=== PATIENT | female | born 1965 | race Caucasian/White ===

== ENCOUNTER → 2018-03-31 | Outpatient (CLI) | payer BC ==
--- NOTE | 2018-03-31 12:49 | P.STRESS ---
- Stress Test Note Stress Test Results/Findings: Exam Performed: stress echo exercise with con Exam Date: 03/31/18 Reason for Exam: cp Height: 5 ft 2 in Weight: 104.326 kg Protocol: stress echo Stage: 3 Duration of Exercise: 5min 30 sec Resting Heart Rate: 95 Resting Blood Pressure: 104/50 Maximum Achieved Heart Rate: 142 Maximum Achieved Blood Pressure: 191/51 85% PMHR: 141 100% PMHR: 166 METS: 7.5 Technologist Comment: Stress Test Results/Findings: This is a 52-year-old gentleman with history of asthma being evaluated for symptoms of chest pain. Stress data: Baseline EKG showed a sinus rhythm with normal MT interval and QRS duration with mild nonspecific ST-T sheldon. Her pressure at rest is 104/50 with pulse rate of 95. Patient walked on the Jose protocol for 6 minutes and 30 seconds achieving a maximal heart rate of 142 with a blood pressure 191/51. EKGs taken during exercise showed about half a millimeter horizontal ST depression in inferolateral leads. These changes persisted for about 6 minutes in the post exercise period. Patient did not experience any chest pain. Echo data: This stress echo is done with contrast. Baseline echo images showed normal wall motion and thickening. Exercise echo images showed augmentation of wall motion and thickening in all segments. Final impression: #1. Borderline EKG changes which are nondiagnostic for ischemia because of baseline changes. #2. Negative stress echo. #3. Patient did not experience any chest pain.
--- NOTE | 2018-04-03 15:50 | ECHOS ---
Stress Test Results/Findings: Exam Performed: stress echo exercise with con Exam Date: 03/31/18 Reason for Exam: cp Height: 5 ft 2 in Weight: 104.326 kg Protocol: stress echo Stage: 3 Duration of Exercise: 5min 30 sec Resting Heart Rate: 95 Resting Blood Pressure: 104/50 Maximum Achieved Heart Rate: 142 Maximum Achieved Blood Pressure: 191/51 85% PMHR: 141 100% PMHR: 166 METS: 7.5 Technologist Comment: Stress Test Results/Findings: This is a 52-year-old gentleman with history of asthma being evaluated for symptoms of chest pain. Stress data: Baseline EKG showed a sinus rhythm with normal IL interval and QRS duration with mild nonspecific ST-T sheldon. Her pressure at rest is 104/50 with pulse rate of 95. Patient walked on the Jose protocol for 6 minutes and 30 seconds achieving a maximal heart rate of 142 with a blood pressure 191/51. EKGs taken during exercise showed about half a millimeter horizontal ST depression in inferolateral leads. These changes persisted for about 6 minutes in the post exercise period. Patient did not experience any chest pain. Echo data: This stress echo is done with contrast. Baseline echo images showed normal wall motion and thickening. Exercise echo images showed augmentation of wall motion and thickening in all segments. Final impression: #1. Borderline EKG changes which are nondiagnostic for ischemia because of baseline changes. #2. Negative stress echo. #3. Patient did not experience any chest pain. LISETH
== END ==
LOC: RADNMMAIN 10:10
PROVIDERS: ATTEND Family Medicine
DX: R07.89 Other chest pain (principal)
CPT/HCPCS: 93351; Q9950

== ENCOUNTER → 2018-10-18 | Outpatient (CLI) | payer BC ==
--- NOTE | 2018-10-18 17:50 | CT ---
EXAMINATION TYPE: CT abdomen w con DATE OF EXAM: 10/18/2018 COMPARISON: None HISTORY: Jaundice. CT DLP: 1231.3 mGycm Automated exposure control for dose reduction was used. TECHNIQUE: Helical acquisition of images was performed from the lung bases through the top of iliac crest to include entire abdomen. CONTRAST: Performed with Oral Contrast and with IV Contrast, patient injected with 100ml mL of Isovue 300. FINDINGS: Lung bases are clear. There is no pleural effusion. Heart size is normal. Liver spleen pancreas appear normal. Bile ducts are not dilated. There are small calcified gallstone. Gallbladder is contracted.There is 5 mm calcified granuloma in the anterior spleen. There is no adre nal mass. The kidneys show satisfactory contrast opacification. There is no hydronephrosis. Ureters a re not dilated. I see no intestinal wall thickening. There are no dilated loops. There is no evidence of mesenteric edema or adenopathy. There is no retroperitoneal adenopathy. There is no lumbar compr ession fracture. There is left-sided L5 spondylolysis without spondylolisthesis. IMPRESSION: UNILATERAL L5 SPONDYLOLYSIS. NEGATIVE CT SCAN OF THE ABDOMEN. SMALL CALCIFIED GALLSTONE.
== END ==
LOC: RADCTMAIN 16:16
PROVIDERS: ATTEND Midwife
DX: R17 Unspecified jaundice (principal)
CPT/HCPCS: 74160; Q9967

== ENCOUNTER → 2018-11-01 | Outpatient (CLI) | payer BC ==
[2018-11-01 09:52] LABS: HCT 38.2 % (34.0-46.0); MCH 32.6 pg (25.0-35.0); MCHC 31.2 g/dL (31.0-37.0); MCV 104.2 fL (80.0-100.0); Macrocytosis Moderate; Mean Platelet Volume 6.5; Platelet Count 301 k/uL (150-450); RBC 3.67 m/uL (3.80-5.40); RDW 15.3 % (11.5-15.5); WBC 7.3 k/uL (3.8-10.6)
[2018-11-01 10:17] LABS: Prothrombin Time 10.4 sec (9.0-12.0)
[2018-11-01 17:15] LABS: Iron Saturation 37.43 (12.00-45.00)
[2018-11-01 17:18] LABS: Albumin 3.8 g/dL (3.80-4.90); Albumin/Globulin Ratio 1.81 (1.20-2.10); Bilirubin, Conjugated 15.3 mg/dL (0.20-0.40); Bilirubin,Unconjugated 5.5 mg/dL; Globulin 2.1 g/dL (1.6-3.3); Total Protein 5.9 g/dL (6.2-8.2)
[2018-11-02 12:35] LABS: Ceruloplasmin 47.7 mg/dL (20.0-60.0)
[2018-11-02 14:03] LABS: Albumin 3.85 g/dL (3.80-4.90); Gamma Globulin 0.58 g/dL (0.70-1.50)
[2018-11-03 08:29] LABS: Total Bilirubin 20.8 mg/dL (0.2-1.2)
== END | disposition home or self-care (01) ==
LOC: LABWHC1 09:12
PROVIDERS: ATTEND Physician Assistant
DX: R74.8 Abnormal levels of other serum enzymes (principal)
CPT/HCPCS: 36415; 80076; 82390; 82728; 83516; 83540; 83550; 84165; 85027; 85610; 86038

== ENCOUNTER → 2018-11-01 | Outpatient (CLI) | payer BC ==
--- NOTE | 2018-11-01 13:27 | MR ---
EXAMINATION TYPE: MR liver wo/w con and mrcp DATE OF EXAM: 11/01/2018 COMPARISON: CT abdomen dated 10/18/2018 HISTORY: Jaundice, Abn levels of other serum enzymes CONTRAST: Standard multiplanar, multisequence MRI departmental protocol utilizing 10 mL intravenous Gadavist ga dolinium contrast. MRCP protocol was utilized to evaluate the biliary tree with 3-D images of the bi liary system obtained. FINDINGS: The common bile duct is nondilated measuring 4 mm distally. There is a low insertion of the cystic duct although no evidence of Mirizzi syndrome is seen at this time. The common hepatic duct i s also within normal limits measuring 5 mm. Very mild intrahepatic biliary ductal dilatation is seen with bridging and alternating areas of stenosis and dilatation in the left hepatic lobe on MRCP thick slab series 701 images 19 through 35. This has a beaded appearance. There is no evidence of signal d ropout on out of phase imaging within the hepatic parenchyma globally, however there are geographic r egions within the right hepatic lobe that do demonstrate signal dropout suggesting few areas of focal fatty infiltration. There is no associated suspicious T2 signal. There are few scattered T2 hyperint ense nonenhancing 1 to 2 mm hepatic cysts. No suspicious enhancement is seen within the liver. Liver contour is smooth. There is some motion artifact present, slightly limiting examination. The spleen, adrenal glands, pancreas, and kidneys are of unremarkable enhancement and morphology. No pancreatic ductal dilatation. Gallbladder is unremarkable. No evidence of choledocholithiasis. Bowel is nondilated. Abdominal aorta is of normal course and caliber. No greater than 1 cm short axis lymph node in the abdomen. There is a solitary nonenlarged 6 mm daily hepatis lymph node Subcutaneous tiss ues are unremarkable. Bone marrow signal is also within normal limits. IMPRESSION: No suspicious enhancing focal liver lesion. There are few scattered 1 to 2 mm hepatic cysts that do n ot demonstrate suspicious enhancement. No evidence of choledocholithiasis or cholelithiasis. Few area s of focal fatty infiltration are seen within the liver. Additionally few minimally prominent left he patic biliary radicles demonstrate somewhat of a beaded appearance not readily reproducible on axial images but seen on the thick slab 3-D images. Therefore the possibility of primary sclerosing cholang itis could be considered, although mild.
== END | disposition home or self-care (01) ==
LOC: RADMRIMAIN 10-30 08:39
PROVIDERS: ATTEND Internal Medicine Gastroenterology
DX: K76.0 Fatty (change of) liver, not elsewhere classified (principal); K76.89 Other specified diseases of liver
CPT/HCPCS: 74183; A9585

== ENCOUNTER 2019-01-05 20:23 | Emergency (ER) | payer BC, OTHER ==
[2019-01-05 20:30] VITALS: BP 142/61; PULSE 100; RESP 16; TEMP 98.4
[2019-01-05] MEDS ORDERED: DIPH,PERTUS(ACELL)TETVAC-LF 0.5 ML VIAL IM ONE (20:40)
[2019-01-05] MEDS ORDERED: LIDOCAINE 1% INJ 10MG/ML (20 ML MDV) SQ ONE (20:40)
--- NOTE | 2019-01-05 21:03 | XR ---
EXAMINATION TYPE: XR hand complete RT DATE OF EXAM: 01/05/2019 COMPARISON: NONE HISTORY: Laceration TECHNIQUE: 3 views FINDINGS: Metacarpals are intact. I see no fracture nor dislocation. There is no sign of radiopaque f oreign body. Joint spaces are fairly normal. There are some cystic change at the base of the second p roximal phalanx consistent with old injury and degenerative phenomenon. IMPRESSION: No acute abnormality of the right hand. No fracture.
--- NOTE | 2019-01-05 22:07 | ED ---
General Adult HPI - General Chief complaint: Wound/Laceration Stated complaint: [facility]-Hand lac Time Seen by Provider: 01/05/19 20:39 Source: patient, RN notes reviewed Mode of arrival: ambulatory Limitations: no limitations - History of Present Illness Initial comments: 53-year-old female presents to the emergency department for a chief complaint of laceration to the right hand. Patient states she was at work about an hour prior to arrival when a metal sheet fell on the side of her hand. She states this caused a laceration. Patient denies pain with movement of the hand. Denies any difficulty moving the pinky finger. Tetanus is not up-to-date. Denies any other injuries. Patient has no other complaints at this time including shortness of breath, chest pain, abdominal pain, nausea or vomiting, headache, or visual changes. - Related Data Home Medications Medication Instructions Recorded Confirmed Esomeprazole Magnesium [NexIUM] 20 mg PO DAILY 01/22/15 01/22/15 Levothyroxine Sodium [Synthroid] 50 mcg PO DAILY 01/22/15 01/22/15 Previous Rx's Medication Instructions Recorded predniSONE 40 mg PO DAILY #4 tab 01/22/15 Allergies Allergy/AdvReac Type Severity Reaction Status Date / Time sulfamethoxazole Allergy Rash/Hives Verified 01/05/19 20:31 [From Bactrim] trimethoprim [From Bactrim] Allergy Rash/Hives Verified 01/05/19 20:31 Review of Systems ROS Statement: Those systems with pertinent positive or pertinent negative responses have been documented in the HPI. ROS Other: All systems not noted in ROS Statement are negative. Past Medical History Past Medical History: GERD/Reflux, Thyroid Disorder History of Any Multi-Drug Resistant Organisms: None Reported Past Surgical History: Hysterectomy Additional Past Surgical History / Comment(s): seasonal allergies Past Psychological History: Depression Smoking Status: Never smoker Past Alcohol Use History: Rare Past Drug Use History: None Reported General Exam Limitations: no limitations General appearance: alert, in no apparent distress Head exam: Present: atraumatic, normocephalic, normal inspection Eye exam: Present: normal appearance. Absent: PERRL, EOMI, scleral icterus, conjunctival injection ENT exam: Present: normal exam, mucous membranes moist Neck exam: Present: normal inspection, full ROM. Absent: tenderness, meningismus, lymphadenopathy Respiratory exam: Present: normal lung sounds bilaterally. Absent: respiratory distress, wheezes, rales, rhonchi, stridor Cardiovascular Exam: Present: regular rate, normal rhythm, normal heart sounds. Absent: systolic murmur, diastolic murmur, rubs, gallop, clicks Extremities exam: Present: full ROM (Full range motion of all digits of the right hand including the right fifth digit), normal capillary refill (cap refill < 2 seconds, radial pulse 2+ in rue), other (3 cm lac on the ulnar aspect of the palmar right hand. There is also a small 0.5 cm laceration above this. No f oreign bodies noted. Deep structures intact.) Neurological exam: Present: alert, oriented X3, CN II-XII intact Psychiatric exam: Present: normal affect, normal mood Course Vital Signs 01/05/19 20:25 Temperature 98.4 F Pulse Rate 100 Respiratory 16 Rate Blood Pressure 142/61 O2 Sat by Pulse 100 Oximetry Procedures - Laceration Laceration #1 Consent Obtained: verbal consent Indication: laceration Site: hand Size (cm): 3 Description: irregular Depth: simple, single layer Anesthetic Used: lidocaine 1% Anesthesia Technique: local infiltration Amount (mls): 4 Pre-repair: wound explored, irrigated extensively (With pressure saline irrigation and cleaned with iodine), deep structures intact Size of Sutures: 5-0 Number of Sutures: 6 Technique: simple, interrupted Patient Tolerated Procedure: well, no complications Medical Decision Making - Medical Decision Making 53 rolled female percent for laceration after a metal sheet fell on her hand. Full range motion in the right hand. X-ray negative for fractures. Laceration cleaned thoroughly with pressure saline irrigation and iodine. Repaired without complications. Educated on signs of infection for which patient will return for. Tetanus updated. She will return if she has any other worsening symptoms. Educated to have sutures removed in 7-10 days, educated that we will do this through the emergency department. Disposition Clinical Impression: Laceration Disposition: HOME SELF-CARE Condition: Good Instructions (If sedation given, give patient instructions): Care For Your Stitches (ED), Laceration (ED) Additional Instructions: Please keep the area clean. Monitor for signs of infection such as spreading or streaking redness, drainage, or fever and return if these occur. Follow-up with primary care in 1-2 days. Return to the emergency department if you have any worsening symptoms. Return in 7-10 days to have sutures removed. Is patient prescribed a controlled substance at d/c from ED?: No Referrals: Alexye Brown MD [Primary Care Provider] - 1-2 days Time of Disposition: 22:06
== END 2019-01-05 22:29 | disposition home or self-care (01) ==
LOC: EC 20:23
DX: S61.411A Laceration without foreign body of right hand, initial encounter (principal); K21.9 Gastro-esophageal reflux disease without esophagitis; E07.9 Disorder of thyroid, unspecified; Z79.890 Hormone replacement therapy; Z79.899 Other long term (current) drug therapy; Z88.2 Allergy status to sulfonamides; Z23 Encounter for immunization; W20.8XXA Other cause of strike by thrown, projected or falling object, initial encounter; Y92.69 Other specified industrial and construction area as the place of occurrence of the external cause; Y99.0 Civilian activity done for income or pay
CPT/HCPCS: 12002; 90471; 90715; 99283

== ENCOUNTER 2019-05-10 05:52 | Emergency (ER) | payer BC ==
[2019-05-10] MEDS ORDERED: IPRATROPIUM-ALBUTEROL 3 ML NEB INHALATION STA ×2 (06:17→07:01)
[2019-05-10] MEDS ORDERED: SODIUM CHLORIDE 0.9% 500 ML 500 ML IV STA (06:18)
[2019-05-10] MEDS ORDERED: methylPREDNISolone SOD SUCCI 125 MG/2 ML VIAL IV STA (06:18)
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
[2019-05-10 06:30] LABS: Basophils # (A) 0.1 k/uL (0-0.2); Basophils % (A) 1 %; Eosinophils # (A) 1.5 k/uL (0-0.7); Eosinophils % (A) 15 %; HCT 42.6 % (34.0-46.0); HGB 14.3 gm/dL (11.4-16.0); Lymphocytes % (A) 31 %; MCH 31.5 pg (25.0-35.0); MCHC 33.6 g/dL (31.0-37.0); MCV 93.7 fL (80.0-100.0); Mean Platelet Volume 6.4; Monocytes # (A) 0.4 k/uL (0-1.0); Monocytes % (A) 4 %; Neutrophils # (A) 4.7 k/uL (1.3-7.7); Neutrophils % (A) 48 %; Platelet Count 278 k/uL (150-450); RBC 4.55 m/uL (3.80-5.40); RDW 12.8 % (11.5-15.5); WBC 9.8 k/uL (3.8-10.6)
[2019-05-10 06:39] LABS: ALT 29 U/L (9-52); AST 29 U/L (14-36); African American GFR (CKD) >90 (>60 ml/min/1.73 sqM); Albumin 4.6 g/dL (3.5-5.0); Alkaline Phosphatase 129 U/L (38-126); Anion Gap 10 mmol/L; Blood Urea Nitrogen 22 mg/dL (7-17); Calcium 9.9 mg/dL (8.4-10.2); Carbon Dioxide 27 mmol/L (22-30); Chloride 104 mmol/L (98-107); Glucose 110 mg/dL (74-99); Magnesium 2.1 mg/dL (1.6-2.3); Non-African American GFR(CKD) >90 (>60 ml/min/1.73 sqM); Potassium 3.8 mmol/L (3.5-5.1); Sodium 141 mmol/L (137-145); Total Protein 7.4 g/dL (6.3-8.2)
[2019-05-10 06:48] LABS: Partial Thromboplastin Time 24.1 sec (22.0-30.0); Prothrombin Time 10.6 sec (9.0-12.0)
--- NOTE | 2019-05-10 07:09 | XR ---
EXAMINATION TYPE: XR chest 2V DATE OF EXAM: 05/10/2019 COMPARISON: 05/10/2019 HISTORY: Difficulty breathing TECHNIQUE: Frontal and lateral views of the chest are obtained. FINDINGS: There is no focal air space opacity, pleural effusion, or pneumothorax seen. The cardiac silhouette size is within normal limits. The osseous structures are intact. Mild multilevel degener ative changes of the spine. IMPRESSION: No acute cardiopulmonary process.
[2019-05-10 08:06] VITALS: BP 152/80; PULSE 92; RESP 18; TEMP 97.9
== END 2019-05-10 08:06 | disposition home or self-care (01) ==
LOC: EC 05:52
DX: J45.901 Unspecified asthma with (acute) exacerbation (principal); K21.9 Gastro-esophageal reflux disease without esophagitis; E07.9 Disorder of thyroid, unspecified; Z88.2 Allergy status to sulfonamides; Z79.890 Hormone replacement therapy; Z79.899 Other long term (current) drug therapy
CPT/HCPCS: 36415; 94640 ×2; 80053; 83735; 84484; 85025; 85610; 85730; 71046; 99285; 96374; J2930; 93005

== ENCOUNTER 2019-05-24 15:05 | Emergency (ER) | payer BC ==
[2019-05-24 15:10] VITALS: RESP 14
[2019-05-24] MEDS ORDERED: IPRATROPIUM-ALBUTEROL 3 ML NEB INHALATION STA (15:14)
[2019-05-24] MEDS ORDERED: SODIUM CHLORIDE 0.9% 1,000 ML IV STA (15:14)
--- NOTE | 2019-05-24 15:15 | ED ---
SOB HPI - General Chief Complaint: Shortness of Breath Stated Complaint: TIERRA Time Seen by Provider: 05/24/19 15:09 Source: patient, RN notes reviewed, old records reviewed Mode of arrival: EMS Limitations: no limitations - History of Present Illness Initial Comments: This is a 53-year-old female the ER for evaluation. Presents today for evaluation regarding shortness of breath with history of asthma. Patient states eating. Worse damage prior to arrival, she's had a few episodes of asthma exacerbation recently. No pain increased cough and increased congestion no fever. No recent travel history or sick contacts. No current chest pain patient feeling much better with breathing treatment MD Complaint: shortness of breath, cough -: hour(s) Radiation: neck, other Severity: mild Severity scale (1-10): 5 (Improving) Consistency: constant, now resolved (Improving) Improves With: oxygen, bronchodilators, medication Worsens With: exertion Known History Of: COPD, asthma Context: recent URI Associated Symptoms: cough, sputum production - Related Data Home Medications Medication Instructions Recorded Confirmed Levothyroxine Sodium [Synthroid] 50 mcg PO HS 01/22/15 05/24/19 Albuterol Inhaler [Ventolin Hfa 1 - 2 puff INHALATION RT-Q6H PRN 05/10/19 05/24/19 Inhaler] Fluticasone/Salmeterol [Advair 1 puff INHALATION RT-BID PRN 05/10/19 05/24/19 250-50 Diskus] Loratadine [Claritin] 10 mg PO DAILY 05/10/19 05/24/19 Omeprazole 20 mg PO HS 05/10/19 05/24/19 Levofloxacin [Levaquin] 500 mg PO DAILY 05/24/19 05/24/19 Previous Rx's Medication Instructions Recorded Albuterol Inhaler [Ventolin Hfa 1 - 2 puff INHALATION RT-Q6H #1 05/24/19 Inhaler] inhaler Azithromycin [Zithromax Z-pack] 0 mg PO DIRECTED #1 pack 05/24/19 predniSONE 50 mg PO DAILY #5 tab 05/24/19 Allergies Allergy/AdvReac Type Severity Reaction Status Date / Time amoxicillin [From Augmentin] AdvReac JAUNDICE Verified 05/24/19 15:59 clavulanic acid AdvReac JAUNDICE Verified 05/24/19 15:59 [From Augmentin] sulfamethoxazole AdvReac Rash/Hives Verified 05/24/19 15:59 [From Bactrim] trimethoprim [From Bactrim] AdvReac Rash/Hives Verified 05/24/19 15:59 Review of Systems ROS Statement: Those systems with pertinent positive or pertinent negative responses have been documented in the HPI. ROS Other: All systems not noted in ROS Statement are negative. Past Medical History Past Medical History: Asthma, GERD/Reflux, Thyroid Disorder History of Any Multi-Drug Resistant Organisms: None Reported Past Surgical History: Hysterectomy Additional Past Surgical History / Comment(s): seasonal allergies Past Psychological History: Depression Smoking Status: Never smoker Past Alcohol Use History: Rare Past Drug Use History: None Reported General Exam Limitations: no limitations General appearance: alert, in no apparent distress Head exam: Present: atraumatic, normocephalic, normal inspection Eye exam: Present: normal appearance, PERRL, EOMI. Absent: scleral icterus, conjunctival injection, periorbital swelling ENT exam: Present: normal exam, mucous membranes moist Neck exam: Present: normal inspection. Absent: tenderness, meningismus, lymphadenopathy Respiratory exam: Present: respiratory distress, wheezes, accessory muscle use, decreased breath sounds, prolonged expiratory. Absent: rales, rhonchi, stridor Cardiovascular Exam: Present: regular rate, normal rhythm, normal heart sounds. Absent: systolic murmur, diastolic murmur, rubs, gallop, clicks GI/Abdominal exam: Present: soft, normal bowel sounds. Absent: distended, tenderness, guarding, rebound, rigid Extremities exam: Present: normal inspection, full ROM, normal capillary refill. Absent: tenderness, pedal edema, joint swelling, calf tenderness Back exam: Present: normal inspection Neurological exam: Present: alert, oriented X3, CN II-XII intact Psychiatric exam: Present: normal affect, normal mood Skin exam: Present: warm, dry, intact, normal color. Absent: rash Course Vital Signs 05/24/19 05/24/19 05/24/19 15:06 15:51 15:59 Temperature 97.5 F L Pulse Rate 92 87 Respiratory 14 Rate Blood Pressure 136/77 O2 Sat by Pulse 100 98 Oximetry 05/24/19 05/24/19 16:13 16:50 Temperature Pulse Rate 88 88 Respiratory 14 Rate Blood Pressure 126/58 O2 Sat by Pulse 98 Oximetry - Reevaluation(s) Reevaluation #1: 05/24/19 16:42 Medical record is reviewed Reevaluation #2: 05/24/19 16:42 Symptoms are improved Reevaluation #3: 05/24/19 17:32 Patient feels significant improvement after second breathing treatment, feels fine for discharge Medical Decision Making - Medical Decision Making 53 female the ER for evaluation patient presents today for shortness of breath with cough. Patient given breathing treatment with significant improvement, will be discharged home on breathing treatments and is without significant complaint - Lab Data Result diagrams: 05/24/19 15:33 05/24/19 15:33 Lab Results 05/24/19 05/24/19 05/24/19 Range/Units 15:33 15:33 15:33 WBC 8.4 (3.8-10.6) k/uL RBC 4.27 (3.80-5.40) m/uL Hgb 13.9 (11.4-16.0) gm/dL Hct 41.2 (34.0-46.0) % MCV 96.5 (80.0-100.0) fL MCH 32.5 (25.0-35.0) pg MCHC 33.7 (31.0-37.0) g/dL RDW 13.9 (11.5-15.5) % Plt Count 235 (150-450) k/uL Neutrophils % 64 % Lymphocytes % 23 % Monocytes % 3 % Eosinophils % 8 % Basophils % 1 % Neutrophils # 5.3 (1.3-7.7) k/uL Lymphocytes # 2.0 (1.0-4.8) k/uL Monocytes # 0.3 (0-1.0) k/uL Eosinophils # 0.7 (0-0.7) k/uL Basophils # 0.1 (0-0.2) k/uL PT (9.0-12.0) sec INR (<1.2) APTT (22.0-30.0) sec Sodium 139 (137-145) mmol/L Potassium 3.7 (3.5-5.1) mmol/L Chloride 107 (98-107) mmol/L Carbon Dioxide 26 (22-30) mmol/L Anion Gap 6 mmol/L BUN 17 (7-17) mg/dL Creatinine 0.60 (0.52-1.04) mg/dL Est GFR (CKD-EPI)AfAm >90 (>60 ml/min/1.73 sqM) Est GFR (CKD-EPI)NonAf >90 (>60 ml/min/1.73 sqM) Glucose 114 H (74-99) mg/dL Calcium 9.3 (8.4-10.2) mg/dL Magnesium 1.9 (1.6-2.3) mg/dL Total Bilirubin 1.0 (0.2-1.3) mg/dL AST 29 (14-36) U/L ALT 33 (9-52) U/L Alkaline Phosphatase 122 (38-126) U/L Troponin I (0.000-0.034) ng/mL NT-Pro-B Natriuret Pep 129 pg/mL Total Protein 6.6 (6.3-8.2) g/dL Albumin 4.0 (3.5-5.0) g/dL 05/24/19 05/24/19 Range/Units 15:33 15:33 WBC (3.8-10.6) k/uL RBC (3.80-5.40) m/uL Hgb (11.4-16.0) gm/dL Hct (34.0-46.0) % MCV (80.0-100.0) fL MCH (25.0-35.0) pg MCHC (31.0-37.0) g/dL RDW (11.5-15.5) % Plt Count (150-450) k/uL Neutrophils % % Lymphocytes % % Monocytes % % Eosinophils % % Basophils % % Neutrophils # (1.3-7.7) k/uL Lymphocytes # (1.0-4.8) k/uL Monocytes # (0-1.0) k/uL Eosinophils # (0-0.7) k/uL Basophils # (0-0.2) k/uL PT 9.9 (9.0-12.0) sec INR 0.9 (<1.2) APTT 22.1 (22.0-30.0) sec Sodium (137-145) mmol/L Potassium (3.5-5.1) mmol/L Chloride (98-107) mmol/L Carbon Dioxide (22-30) mmol/L Anion Gap mmol/L BUN (7-17) mg/dL Creatinine (0.52-1.04) mg/dL Est GFR (CKD-EPI)AfAm (>60 ml/min/1.73 sqM) Est GFR (CKD-EPI)NonAf (>60 ml/min/1.73 sqM) Glucose (74-99) mg/dL Calcium (8.4-10.2) mg/dL Magnesium (1.6-2.3) mg/dL Total Bilirubin (0.2-1.3) mg/dL AST (14-36) U/L ALT (9-52) U/L Alkaline Phosphatase (38-126) U/L Troponin I <0.012 (0.000-0.034) ng/mL NT-Pro-B Natriuret Pep pg/mL Total Protein (6.3-8.2) g/dL Albumin (3.5-5.0) g/dL - EKG Data -: EKG Interpreted by Me (EKG shows sinus rhythm rate of 87, AK 140, QRS 70, QTc 464) - Radiology Data Radiology results: report reviewed (Chest x-rays negative for acute disease), image reviewed Disposition Clinical Impression: Acute exacerbation of chronic obstructive airways disease, Asthma with exacerbation, Asthma exacerbation Disposition: HOME SELF-CARE Condition: Good Instructions (If sedation given, give patient instructions): Asthma (ED), Acute Bronchitis (ED) Prescriptions: predniSONE 50 mg PO DAILY #5 tab Albuterol Inhaler [Ventolin Hfa Inhaler] 1 - 2 puff INHALATION RT-Q6H #1 inhaler Azithromycin [Zithromax Z-pack] 0 mg PO DIRECTED #1 pack Is patient prescribed a controlled substance at d/c from ED?: No Referrals: Alexey Brown MD [Primary Care Provider] - 1-2 days
[2019-05-24 15:45] LABS: Basophils # (A) 0.1 k/uL (0-0.2); Basophils % (A) 1 %; Eosinophils # (A) 0.7 k/uL (0-0.7); Eosinophils % (A) 8 %; HCT 41.2 % (34.0-46.0); HGB 13.9 gm/dL (11.4-16.0); Lymphocytes % (A) 23 %; MCH 32.5 pg (25.0-35.0); MCHC 33.7 g/dL (31.0-37.0); MCV 96.5 fL (80.0-100.0); Monocytes # (A) 0.3 k/uL (0-1.0); Monocytes % (A) 3 %; Neutrophils # (A) 5.3 k/uL (1.3-7.7); Neutrophils % (A) 64 %; Platelet Count 235 k/uL (150-450); RBC 4.27 m/uL (3.80-5.40); RDW 13.9 % (11.5-15.5); WBC 8.4 k/uL (3.8-10.6)
[2019-05-24 15:51] LABS: ALT 33 U/L (9-52); AST 29 U/L (14-36); African American GFR (CKD) >90 (>60 ml/min/1.73 sqM); Alkaline Phosphatase 122 U/L (38-126); Anion Gap 6 mmol/L; Blood Urea Nitrogen 17 mg/dL (7-17); Calcium 9.3 mg/dL (8.4-10.2); Carbon Dioxide 26 mmol/L (22-30); Chloride 107 mmol/L (98-107); Glucose 114 mg/dL (74-99); Magnesium 1.9 mg/dL (1.6-2.3); Potassium 3.7 mmol/L (3.5-5.1); Sodium 139 mmol/L (137-145); Total Protein 6.6 g/dL (6.3-8.2)
[2019-05-24 15:54] LABS: INR 0.9 (<1.2); Partial Thromboplastin Time 22.1 sec (22.0-30.0); Prothrombin Time 9.9 sec (9.0-12.0)
--- NOTE | 2019-05-24 15:54 | XR ---
EXAMINATION TYPE: XR chest 2V DATE OF EXAM: 05/24/2019 COMPARISON: 05/10/2019 HISTORY: Shortness of breath with history of asthma TECHNIQUE: Frontal and lateral views of the chest are obtained. FINDINGS: Minimal new strand-like left basilar atelectasis. There is no focal air space opacity, ple ural effusion, or pneumothorax seen. The cardiac silhouette size is within normal limits. The osse ous structures are intact. Mild multilevel degenerative changes of the thoracic spine. IMPRESSION: There is minimal new strand-like left basilar atelectasis. Otherwise no acute cardiopulm onary process.
--- NOTE | 2019-05-24 17:01 | XR ---
EXAMINATION TYPE: XR soft tissue neck DATE OF EXAM: 05/24/2019 COMPARISON: NONE HISTORY: Asthma. Tight throat. Pain. TECHNIQUE: 2 views FINDINGS: Epiglottis is normal. Prevertebral soft tissues appear normal. Subglottic trachea appears n ormal. Tonsils and adenoids appear normal. IMPRESSION: Normal cervical soft tissue exam.
[2019-05-24] MEDS ORDERED: ALBUTEROL NEBULIZED 2.5 MG/3 ML INHALATION STA (17:30)
[2019-05-24 18:10] VITALS: BP 124/59; PULSE 97; TEMP 98.6
== END 2019-05-24 18:08 | disposition home or self-care (01) ==
LOC: EC 15:05
DX: J44.1 Chronic obstructive pulmonary disease with (acute) exacerbation (principal); J45.901 Unspecified asthma with (acute) exacerbation; K21.9 Gastro-esophageal reflux disease without esophagitis; E07.9 Disorder of thyroid, unspecified; Z79.890 Hormone replacement therapy; Z79.899 Other long term (current) drug therapy; Z88.0 Allergy status to penicillin; Z88.1 Allergy status to other antibiotic agents; Z88.2 Allergy status to sulfonamides
CPT/HCPCS: 36415; 70360; 71046; 80053; 83735; 83880; 84484; 85025; 85610; 85730; 93005; 94640; 96360; 99285

== ENCOUNTER 2019-05-30 09:25 | Emergency (ER) | payer BC ==
[2019-05-30 09:52] VITALS: RESP 14
[2019-05-30] MEDS ORDERED: IPRATROPIUM-ALBUTEROL 3 ML NEB INHALATION STA (09:57)
--- NOTE | 2019-05-30 10:00 | ED ---
General Adult HPI - General Chief complaint: Allergic Reaction Stated complaint: poss medication reaction, chest &throat tightness Time Seen by Provider: 05/30/19 09:44 Source: patient, RN notes reviewed, old records reviewed Mode of arrival: wheelchair Limitations: physical limitation - History of Present Illness Initial comments: 53-year-old female patient presents to ED for multiple complaints. Patient reports that for approximately the last 2 months she has felt a tightness in her neck. Patient also reports waxing and waning difficulty breathing due to her asthma. Patient also complains of frequent dysuria and urgency. Patient has been treated multiple times for urinary tract infection. Patient does have follow-up with pulmonology but not for a couple of weeks. Patient's chief complaint is to identify what is causing the sensation of tightness in her neck. Patient was previously seen here recently and had a plain film of her neck whi ch did not display acute process. Systemic: Pt denies fatigue, fever/chills, rash. Pt denies weakness, night sweats, weight loss. Neuro: Pt denies headache, visual disturbances, syncope or pre-syncope. HEENT: Pt denies ocular discharge or irritation, otalgia, rhinorrhea, pharyngitis or notable lymphadenopathy. Cardiopulmonary: Pt denies chest pain, SOB, heart palpitations, dyspnea on exertion. Abdominal/GI: Pt denies abdominal pain, n/v/d. : Pt denies dysuria, burning w/ urination, frequency/urgency. Denies new onset urinary or bowel incontinence. MSK: Pt denies myalgia, loss of strength or function in extremities. Neuro: Pt denies new onset weakness, paresthesias. - Related Data Home Medications Medication Instructions Recorded Confirmed Levothyroxine Sodium [Synthroid] 50 mcg PO HS 01/22/15 05/30/19 Fluticasone/Salmeterol [Advair 1 puff INHALATION RT-BID PRN 05/10/19 05/30/19 250-50 Diskus] Loratadine [Claritin] 10 mg PO DAILY 05/10/19 05/30/19 Omeprazole 20 mg PO HS 05/10/19 05/30/19 Levofloxacin [Levaquin] 500 mg PO DAILY 05/24/19 05/30/19 Albuterol Inhaler [Ventolin Hfa 1 - 2 puff INHALATION RT-Q6H PRN 05/30/19 05/30/19 Inhaler] Albuterol Nebulized [Ventolin 2.5 mg INHALATION RT-TID PRN 05/30/19 05/30/19 Nebulized] Previous Rx's Medication Instructions Recorded Albuterol Inhaler [Ventolin Hfa 1 - 2 puff INHALATION Q4-6H PRN #1 05/30/19 Inhaler] inhaler EPINEPHrine [Epipen Jr 2-Ben] 0.15 mg IM ONCE PRN #1 pack 05/30/19 Nitrofurantoin Monohyd/M-Cryst 100 mg PO Q12HR #14 cap 05/30/19 [Macrobid] predniSONE 50 mg PO DAILY #4 tab 05/30/19 Allergies Allergy/AdvReac Type Severity Reaction Status Date / Time amoxicillin [From Augmentin] AdvReac JAUNDICE Verified 05/30/19 09:58 clavulanic acid AdvReac JAUNDICE Verified 05/30/19 09:58 [From Augmentin] sulfamethoxazole AdvReac Rash/Hives Verified 05/30/19 09:58 [From Bactrim] trimethoprim [From Bactrim] AdvReac Rash/Hives Verified 05/30/19 09:58 Review of Systems ROS Statement: Those systems with pertinent positive or pertinent negative responses have been documented in the HPI. ROS Other: All systems not noted in ROS Statement are negative. Past Medical History Past Medical History: Asthma, GERD/Reflux, Thyroid Disorder History of Any Multi-Drug Resistant Organisms: None Reported Past Surgical History: Hysterectomy Additional Past Surgical History / Comment(s): seasonal allergies Past Psychological History: Depression Smoking Status: Never smoker Past Alcohol Use History: Rare Past Drug Use History: None Reported General Exam - General Exam Comments Initial Comments: Constitutional: NAD, AOX3, Pt has pleasant affect. HEENT: NC/AT, trachea midline, neck supple, no lymphadenopathy. Posterior pharynx non erythematous, without exudates. External ears appear normal, without discharge. Mucous membranes moist. Eyes PERRLA, EOM intact. There is no scleral icterus. No pallor noted. Cardiopulmonary: RRR, no murmurs, rubs or gallops, no JVD noted. Lungs CTAB in anterior and posterior cortes. No peripheral edema. Abdominal exam: Abdomen soft and non-distended. Abdomen non-tender to palpation in all 4 quadrants. Bowel sounds active in LLQ. No hepatosplenomegaly. No ecchymosis Neuro: CN II-XII grossly intact. No nuchal rigidity. No raccon eyes, no nunez s ign, no hemotympanum. No cervical spinal tenderness. MSK: No posterior calf tenderness bilaterally, homans sign negative bilaterally. Posterior tibialis and radial pulse +2 bilaterally. Sensation intact in upper and lower extremities. Full active ROM in upper and lower extremities, 5/5 stregnth. Limitations: physical limitation Course Vital Signs 05/30/19 05/30/19 05/30/19 09:27 09:47 10:28 Temperature 98 F Pulse Rate 92 88 Respiratory 18 14 Rate Blood Pressure 160/83 O2 Sat by Pulse 100 Oximetry 05/30/19 05/30/19 10:51 11:49 Temperature 97.6 F Pulse Rate 98 94 Respiratory 14 Rate Blood Pressure 128/70 O2 Sat by Pulse 98 Oximetry Medical Decision Making - Medical Decision Making 53-year-old female patient presents to ED for multiple complaints. Patient reports that for approximately the last 2 months she has felt a tightness in her neck. Patient also reports waxing and waning difficulty breathing due to her asthma. Patient also complains of frequent dysuria and urgency. Patient has been treated multiple times for urinary tract infection. Patient does have follow-up with pulmonology but not for a couple of weeks. Patient's chief complaint is to identify what is causing the sensation of tightness in her neck. Patient was previously seen here recently and had a plain film of her neck which did not display acute process. A Angi signs stable, afebrile. Physical exam did not display acute pathology. Investigations revealed mild cytosis of 12.0. D-dimer negative. I'll hypokalemia, supplemented in ED. Troponin negative. UA contaminated, we'll culture. CT soft tissue of contrace ption display acute pathology. Chest x-ray did not display acute process. Patient will be discharged with steroids, will be prescribed Macrobid for possible urinary tract infection, will prescribe this at the time a case of anaphylaxis, will follow up with ENT. Return to ER if condition worsens. Case discussed with Dr. Tyler. - Lab Data Result diagrams: 05/30/19 09:54 05/30/19 09:54 Lab Results 05/30/19 05/30/19 05/30/19 Range/Units 09:54 09:54 09:54 WBC 12.0 H (3.8-10.6) k/uL RBC 4.15 (3.80-5.40) m/uL Hgb 13.5 (11.4-16.0) gm/dL Hct 39.5 (34.0-46.0) % MCV 95.1 (80.0-100.0) fL MCH 32.4 (25.0-35.0) pg MCHC 34.1 (31.0-37.0) g/dL RDW 12.7 (11.5-15.5) % Plt Count 287 (150-450) k/uL Neutrophils % 55 % Lymphocytes % 36 % Monocytes % 4 % Eosinophils % 3 % Basophils % 1 % Neutrophils # 6.6 (1.3-7.7) k/uL Lymphocytes # 4.3 (1.0-4.8) k/uL Monocytes # 0.5 (0-1.0) k/uL Eosinophils # 0.3 (0-0.7) k/uL Basophils # 0.1 (0-0.2) k/uL D-Dimer (<0.60) mg/L FEU Sodium 142 (137-145) mmol/L Potassium 3.1 L (3.5-5.1) mmol/L Chloride 104 (98-107) mmol/L Carbon Dioxide 28 (22-30) mmol/L Anion Gap 10 mmol/L BUN 19 H (7-17) mg/dL Creatinine 0.73 (0.52-1.04) mg/dL Est GFR (CKD-EPI)AfAm >90 (>60 ml/min/1.73 sqM) Est GFR (CKD-EPI)NonAf >90 (>60 ml/min/1.73 sqM) Glucose 89 (74-99) mg/dL Calcium 9.7 (8.4-10.2) mg/dL Total Bilirubin 0.8 (0.2-1.3) mg/dL AST 21 (14-36) U/L ALT 30 (9-52) U/L Alkaline Phosphatase 121 (38-126) U/L Troponin I (0.000-0.034) ng/mL Total Protein 6.9 (6.3-8.2) g/dL Albumin 4.4 (3.5-5.0) g/dL HCG, Qual Not Detected Urine Color Yellow Urine Appearance Cloudy H (Clear) Urine pH 6.5 (5.0-8.0) Ur Specific [place] 1.022 (1.001-1.035) Urine Protein Trace H (Negative) Urine Glucose (UA) Negative (Negative) Urine Ketones Negative (Negative) Urine Blood Trace H (Negative) Urine Nitrite Negative (Negative) Urine Bilirubin Negative (Negative) Urine Urobilinogen <2.0 (<2.0) mg/dL Ur Leukocyte Esterase Large H (Negative) Urine RBC 14 H (0-5) /hpf Urine WBC 51 H (0-5) /hpf Ur Squamous Epith Cells 20 H (0-4) /hpf Amorphous Sediment Rare H (None) /hpf Urine Bacteria Occasional H (None) /hpf Urine Mucus Rare H (None) /hpf 05/30/19 05/30/19 Range/Units 09:54 09:54 WBC (3.8-10.6) k/uL RBC (3.80-5.40) m/uL Hgb (11.4-16.0) gm/dL Hct (34.0-46.0) % MCV (80.0-100.0) fL MCH (25.0-35.0) pg MCHC (31.0-37.0) g/dL RDW (11.5-15.5) % Plt Count (150-450) k/uL Neutrophils % % Lymphocytes % % Monocytes % % Eosinophils % % Basophils % % Neutrophils # (1.3-7.7) k/uL Lymphocytes # (1.0-4.8) k/uL Monocytes # (0-1.0) k/uL Eosinophils # (0-0.7) k/uL Basophils # (0-0.2) k/uL D-Dimer 0.21 (<0.60) mg/L FEU Sodium (137-145) mmol/L Potassium (3.5-5.1) mmol/L Chloride (98-107) mmol/L Carbon Dioxide (22-30) mmol/L Anion Gap mmol/L BUN (7-17) mg/dL Creatinine (0.52-1.04) mg/dL Est GFR (CKD-EPI)AfAm (>60 ml/min/1.73 sqM) Est GFR (CKD-EPI)NonAf (>60 ml/min/1.73 sqM) Glucose (74-99) mg/dL Calcium (8.4-10.2) mg/dL Total Bilirubin (0.2-1.3) mg/dL AST (14-36) U/L ALT (9-52) U/L Alkaline Phosphatase (38-126) U/L Troponin I <0.012 (0.000-0.034) ng/mL Total Protein (6.3-8.2) g/dL Albumin (3.5-5.0) g/dL HCG, Qual Urine Color Urine Appearance (Clear) Urine pH (5.0-8.0) Ur Specific [place] (1.001-1.035) Urine Protein (Negative) Urine Glucose (UA) (Negative) Urine Ketones (Negative) Urine Blood (Negative) Urine Nitrite (Negative) Urine Bilirubin (Negative) Urine Urobilinogen (<2.0) mg/dL Ur Leukocyte Esterase (Negative) Urine RBC (0-5) /hpf Urine WBC (0-5) /hpf Ur Squamous Epith Cells (0-4) /hpf Amorphous Sediment (None) /hpf Urine Bacteria (None) /hpf Urine Mucus (None) /hpf Disposition Clinical Impression: Asthma exacerbation, UTI (urinary tract infection) Disposition: HOME SELF-CARE Condition: Stable Instructions (If sedation given, give patient instructions): Asthma (ED), Urinary Tract Infection in Women (ED) Prescriptions: EPINEPHrine [Epipen Jr 2-Ben] 0.15 mg IM ONCE PRN #1 pack PRN Reason: Anaphylaxis Nitrofurantoin Monohyd/M-Cryst [Macrobid] 100 mg PO Q12HR #14 cap predniSONE 50 mg PO DAILY #4 tab Albuterol Inhaler [Ventolin Hfa Inhaler] 1 - 2 puff INHALATION Q4-6H PRN #1 inhaler PRN Reason: Cough Is patient prescribed a controlled substance at d/c from ED?: No Referrals: Alexey Brown MD [Primary Care Provider] - 1-2 days Prashant Zimmerman MD [STAFF PHYSICIAN] - 1-2 days
[2019-05-30 10:24] LABS: Basophils # (A) 0.1 k/uL (0-0.2); Basophils % (A) 1 %; Eosinophils # (A) 0.3 k/uL (0-0.7); Eosinophils % (A) 3 %; HCT 39.5 % (34.0-46.0); HGB 13.5 gm/dL (11.4-16.0); Lymphocytes # (A) 4.3 k/uL (1.0-4.8); Lymphocytes % (A) 36 %; MCH 32.4 pg (25.0-35.0); MCHC 34.1 g/dL (31.0-37.0); MCV 95.1 fL (80.0-100.0); Mean Platelet Volume 6.4; Monocytes # (A) 0.5 k/uL (0-1.0); Monocytes % (A) 4 %; Neutrophils # (A) 6.6 k/uL (1.3-7.7); Neutrophils % (A) 55 %; Platelet Count 287 k/uL (150-450); RBC 4.15 m/uL (3.80-5.40); RDW 12.7 % (11.5-15.5)
[2019-05-30 10:34] LABS: HCG,Qualitative Serum Not Detected
[2019-05-30 10:35] LABS: Amorphous Sediment,Urine Rare /hpf; Appearance,Urine Cloudy (Clear); Bacteria,Urine Occasional /hpf; Bilirubin,Urine Negative (Negative); Blood,Urine Trace (Negative); Color,Urine Yellow; Glucose,Urine (UA) Negative (Negative); Ketones,Urine Negative (Negative); Leukocyte Esterase,Urine Large (Negative); Mucus,Urine Rare /hpf; Nitrite,Urine Negative (Negative); PH, Urine 6.5 (5.0-8.0); Protein,Urine Trace (Negative); RBC,Urine 14 /hpf (0-5); Specific Gravity,Urine 1.022 (1.001-1.035); Squamous Epithelial Cell,Urine 20 /hpf (0-4); Urobilinogen,Urine <2.0 mg/dL (<2.0); WBC,Urine 51 /hpf (0-5)
[2019-05-30 10:39] LABS: ALT 30 U/L (9-52); AST 21 U/L (14-36); African American GFR (CKD) >90 (>60 ml/min/1.73 sqM); Albumin 4.4 g/dL (3.5-5.0); Alkaline Phosphatase 121 U/L (38-126); Anion Gap 10 mmol/L; Blood Urea Nitrogen 19 mg/dL (7-17); Calcium 9.7 mg/dL (8.4-10.2); Carbon Dioxide 28 mmol/L (22-30); Chloride 104 mmol/L (98-107); Glucose 89 mg/dL (74-99); Non-African American GFR(CKD) >90 (>60 ml/min/1.73 sqM); Potassium 3.1 mmol/L (3.5-5.1); Sodium 142 mmol/L (137-145); Total Bilirubin 0.8 mg/dL (0.2-1.3); Total Protein 6.9 g/dL (6.3-8.2)
--- NOTE | 2019-05-30 11:31 | CT ---
EXAMINATION TYPE: CT soft tissue neck w con DATE OF EXAM: 05/30/2019 COMPARISON: None HISTORY: Possible medication reaction, Chest and throat tightness CT DLP: 247.2 mGycm CONTRAST: CT scan of the neck is performed with IV Contrast, patient injected with 100 ml mL of Isovue 300. Contrast enhanced CT of the neck was performed from the skull base through the lung apices. AIRWAY: The supraglottic, glottic, and subglottic portions of the airway appear patent and free of mass. SALIVARY GLANDS: The submandibular and parotid glands are free of mass or inflammatory process. THYROID GLAND: No nodules or masses seen. LYMPH NODES: No adenopathy seen greater than 1cm. LUNG APICES: No nodule or mass is seen. OTHER: Vascular structures are patent. No significant degenerative change of the cervical spine. N o abscess seen. IMPRESSION: No distinct abnormality identified.
[2019-05-30 11:50] VITALS: BP 128/70; PULSE 94; TEMP 97.6
--- NOTE | 2019-05-30 12:09 | XR ---
EXAMINATION TYPE: XR chest 2V DATE OF EXAM: 05/30/2019 COMPARISON: 05/24/2019 INDICATION: Pain, allergic reaction TECHNIQUE: Frontal and lateral views of the chest are obtained. FINDINGS: The heart size is normal. The pulmonary vasculature is normal. The lungs are clear. IMPRESSION: 1. No acute pulmonary process.
[2019-05-30] MEDS ORDERED: predniSONE 50 MG TAB PO STA (12:19)
[2019-05-30] MEDS ORDERED: POTASSIUM CHLORIDE ER 20 MEQ TAB.ER PO STA (12:20)
--- NOTE | 2019-05-30 12:30 | ED ---
Medical Decision Making - Lab Data Result diagrams: 05/30/19 09:54 05/30/19 09:54 Lab Results 05/30/19 05/30/19 05/30/19 Range/Units 09:54 09:54 09:54 WBC 12.0 H (3.8-10.6) k/uL RBC 4.15 (3.80-5.40) m/uL Hgb 13.5 (11.4-16.0) gm/dL Hct 39.5 (34.0-46.0) % MCV 95.1 (80.0-100.0) fL MCH 32.4 (25.0-35.0) pg MCHC 34.1 (31.0-37.0) g/dL RDW 12.7 (11.5-15.5) % Plt Count 287 (150-450) k/uL Neutrophils % 55 % Lymphocytes % 36 % Monocytes % 4 % Eosinophils % 3 % Basophils % 1 % Neutrophils # 6.6 (1.3-7.7) k/uL Lymphocytes # 4.3 (1.0-4.8) k/uL Monocytes # 0.5 (0-1.0) k/uL Eosinophils # 0.3 (0-0.7) k/uL Basophils # 0.1 (0-0.2) k/uL D-Dimer (<0.60) mg/L FEU Sodium 142 (137-145) mmol/L Potassium 3.1 L (3.5-5.1) mmol/L Chloride 104 (98-107) mmol/L Carbon Dioxide 28 (22-30) mmol/L Anion Gap 10 mmol/L BUN 19 H (7-17) mg/dL Creatinine 0.73 (0.52-1.04) mg/dL Est GFR (CKD-EPI)AfAm >90 (>60 ml/min/1.73 sqM) Est GFR (CKD-EPI)NonAf >90 (>60 ml/min/1.73 sqM) Glucose 89 (74-99) mg/dL Calcium 9.7 (8.4-10.2) mg/dL Total Bilirubin 0.8 (0.2-1.3) mg/dL AST 21 (14-36) U/L ALT 30 (9-52) U/L Alkaline Phosphatase 121 (38-126) U/L Troponin I (0.000-0.034) ng/mL Total Protein 6.9 (6.3-8.2) g/dL Albumin 4.4 (3.5-5.0) g/dL HCG, Qual Not Detected Urine Color Yellow Urine Appearance Cloudy H (Clear) Urine pH 6.5 (5.0-8.0) Ur Specific Harrison 1.022 (1.001-1.035) Urine Protein Trace H (Negative) Urine Glucose (UA) Negative (Negative) Urine Ketones Negative (Negative) Urine Blood Trace H (Negative) Urine Nitrite Negative (Negative) Urine Bilirubin Negative (Negative) Urine Urobilinogen <2.0 (<2.0) mg/dL Ur Leukocyte Esterase Large H (Negative) Urine RBC 14 H (0-5) /hpf Urine WBC 51 H (0-5) /hpf Ur Squamous Epith Cells 20 H (0-4) /hpf Amorphous Sediment Rare H (None) /hpf Urine Bacteria Occasional H (None) /hpf Urine Mucus Rare H (None) /hpf 05/30/19 05/30/19 Range/Units 09:54 09:54 WBC (3.8-10.6) k/uL RBC (3.80-5.40) m/uL Hgb (11.4-16.0) gm/dL Hct (34.0-46.0) % MCV (80.0-100.0) fL MCH (25.0-35.0) pg MCHC (31.0-37.0) g/dL RDW (11.5-15.5) % Plt Count (150-450) k/uL Neutrophils % % Lymphocytes % % Monocytes % % Eosinophils % % Basophils % % Neutrophils # (1.3-7.7) k/uL Lymphocytes # (1.0-4.8) k/uL Monocytes # (0-1.0) k/uL Eosinophils # (0-0.7) k/uL Basophils # (0-0.2) k/uL D-Dimer 0.21 (<0.60) mg/L FEU Sodium (137-145) mmol/L Potassium (3.5-5.1) mmol/L Chloride (98-107) mmol/L Carbon Dioxide (22-30) mmol/L Anion Gap mmol/L BUN (7-17) mg/dL Creatinine (0.52-1.04) mg/dL Est GFR (CKD-EPI)AfAm (>60 ml/min/1.73 sqM) Est GFR (CKD-EPI)NonAf (>60 ml/min/1.73 sqM) Glucose (74-99) mg/dL Calcium (8.4-10.2) mg/dL Total Bilirubin (0.2-1.3) mg/dL AST (14-36) U/L ALT (9-52) U/L Alkaline Phosphatase (38-126) U/L Troponin I <0.012 (0.000-0.034) ng/mL Total Protein (6.3-8.2) g/dL Albumin (3.5-5.0) g/dL HCG, Qual Urine Color Urine Appearance (Clear) Urine pH (5.0-8.0) Ur Specific Harrison (1.001-1.035) Urine Protein (Negative) Urine Glucose (UA) (Negative) Urine Ketones (Negative) Urine Blood (Negative) Urine Nitrite (Negative) Urine Bilirubin (Negative) Urine Urobilinogen (<2.0) mg/dL Ur Leukocyte Esterase (Negative) Urine RBC (0-5) /hpf Urine WBC (0-5) /hpf Ur Squamous Epith Cells (0-4) /hpf Amorphous Sediment (None) /hpf Urine Bacteria (None) /hpf Urine Mucus (None) /hpf - EKG Data -: EKG Interpreted by Me EKG Comments: Ventricular 80, P1 134, QRS 92, QT/QTC 364/440. Normal Chem-7, normal EKG, no concern for acute ischemia. Disposition Clinical Impression: Asthma exacerbation, UTI (urinary tract infection) Disposition: HOME SELF-CARE Condition: Stable Instructions (If sedation given, give patient instructions): Asthma (ED), [place] Infection in Women (ED) Prescriptions: EPINEPHrine [Epipen Jr 2-Ben] 0.15 mg IM ONCE PRN #1 pack PRN Reason: Anaphylaxis Nitrofurantoin Monohyd/M-Cryst [Macrobid] 100 mg PO Q12HR #14 cap predniSONE 50 mg PO DAILY #4 tab Albuterol Inhaler [Ventolin Hfa Inhaler] 1 - 2 puff INHALATION Q4-6H PRN #1 inhaler PRN Reason: Cough Is patient prescribed a controlled substance at d/c from ED?: No Referrals: Alexey Brown MD [Primary Care Provider] - 1-2 days Prashant Zimmerman MD [STAFF PHYSICIAN] - 1-2 days
== END 2019-05-30 12:36 | disposition home or self-care (01) ==
LOC: EC 09:25
DX: J45.901 Unspecified asthma with (acute) exacerbation (principal); N39.0 Urinary tract infection, site not specified; K21.9 Gastro-esophageal reflux disease without esophagitis; E07.9 Disorder of thyroid, unspecified; E87.6 Hypokalemia; Z90.710 Acquired absence of both cervix and uterus; Z79.890 Hormone replacement therapy; Z79.899 Other long term (current) drug therapy; Z88.0 Allergy status to penicillin; Z88.1 Allergy status to other antibiotic agents; Z88.2 Allergy status to sulfonamides
CPT/HCPCS: 36415; 94640; 93005; 85379; 80053; 84484; 85025; 81001; 84703; 71046; 70491; 99284; J7512; Q9967

== ENCOUNTER 2019-07-04 02:50 | Emergency (ER) | payer BC ==
[2019-07-04] MEDS ORDERED: IPRATROPIUM-ALBUTEROL 3 ML NEB INHALATION STA ×2 (03:11→04:06)
--- NOTE | 2019-07-04 03:11 | ED ---
General Adult HPI - General Chief complaint: Upper Respiratory Infection Stated complaint: TIERRA Time Seen by Provider: 07/04/19 03:11 Source: patient Mode of arrival: ambulatory Limitations: no limitations - History of Present Illness Initial comments: Nancy is a 53-year-old female with a history of asthma who presents to the ER this morning for evaluation of wheezing. Patient reports she's had multiple days of persistent wheezing. She's been using her breathing treatments at home with minimal temporary relief. Patient states that when this has happened in the past she's needed steroids. Patient denies any chest pain, palpitations. She describes feeling tight in his when she takes deep breaths similar to previous episodes of asthma exacerbation. - Related Data Home Medications Medication Instructions Recorded Confirmed Levothyroxine Sodium [Synthroid] 50 mcg PO HS 01/22/15 05/30/19 Fluticasone/Salmeterol [Advair 1 puff INHALATION RT-BID PRN 05/10/19 05/30/19 250-50 Diskus] Loratadine [Claritin] 10 mg PO DAILY 05/10/19 05/30/19 Omeprazole 20 mg PO HS 05/10/19 05/30/19 Levofloxacin [Levaquin] 500 mg PO DAILY 05/24/19 05/30/19 Albuterol Inhaler [Ventolin Hfa 1 - 2 puff INHALATION RT-Q6H PRN 05/30/19 05/30/19 Inhaler] Albuterol Nebulized [Ventolin 2.5 mg INHALATION RT-TID PRN 05/30/19 05/30/19 Nebulized] Previous Rx's Medication Instructions Recorded Albuterol Inhaler [Ventolin Hfa 1 - 2 puff INHALATION Q4-6H PRN #1 05/30/19 Inhaler] inhaler EPINEPHrine [Epipen Jr 2-Ben] 0.15 mg IM ONCE PRN #1 pack 05/30/19 Nitrofurantoin Monohyd/M-Cryst 100 mg PO Q12HR #14 cap 05/30/19 [Macrobid] predniSONE 50 mg PO DAILY #4 tab 05/30/19 predniSONE [Deltasone] 40 mg PO DAILY 5 Days #10 tablet 07/04/19 Allergies Allergy/AdvReac Type Severity Reaction Status Date / Time amoxicillin [From Augmentin] AdvReac JAUNDICE Verified 05/30/19 09:58 clavulanic acid AdvReac JAUNDICE Verified 05/30/19 09:58 [From Augmentin] sulfamethoxazole AdvReac Rash/Hives Verified 05/30/19 09:58 [From Bactrim] trimethoprim [From Bactrim] AdvReac Rash/Hives Verified 05/30/19 09:58 Review of Systems ROS Statement: Those systems with pertinent positive or pertinent negative responses have been documented in the HPI. ROS Other: All systems not noted in ROS Statement are negative. Past Medical History Past Medical History: Asthma, GERD/Reflux, Thyroid Disorder History of Any Multi-Drug Resistant Organisms: None Reported Past Surgical History: Hysterectomy Additional Past Surgical History / Comment(s): seasonal allergies Past Psychological History: Depression Smoking Status: Never smoker Past Alcohol Use History: Rare Past Drug Use History: None Reported General Exam - General Exam Comments Initial Comments: Physical Exam GENERAL: Patient is well-developed and well-nourished. Patient is nontoxic and well- hydrated and is in no distress. HENT: Normocephalic, Atraumatic. EYES: PERRL, EOMI PULMONARY: Mild expiratory wheezing CARDIOVASCULAR: There is a regular rate and rhythm without any murmurs gallops or rubs. ABDOMEN: Soft and nontender with normal bowel sounds. SKIN: Skin is clear with no lesions or rashes and otherwise unremarkable. : Deferred NEUROLOGIC: Patient is alert and oriented x3. Moving all extremities spontaneously MUSCULOSKELETAL: Normal extremities with adequate strength and full range of motion. No lower extremity swelling or edema. No calf tenderness. PSYCHIATRIC: Normal psychiatric evaluation. Limitations: no limitations Course Vital Signs 07/04/19 07/04/19 07/04/19 03:00 03:16 03:19 Temperature 98.3 F Pulse Rate 116 H 100 Respiratory 18 22 Rate Blood Pressure 133/69 O2 Sat by Pulse 97 Oximetry 07/04/19 07/04/19 07/04/19 03:33 04:08 05:00 Temperature Pulse Rate 110 H 111 H 100 Respiratory 18 Rate Blood Pressure 133/55 O2 Sat by Pulse 95 Oximetry 07/04/19 07/04/19 05:32 06:15 Temperature 98 F Pulse Rate 100 99 Respiratory 18 Rate Blood Pressure 142/70 O2 Sat by Pulse 95 Oximetry Medical Decision Making - Medical Decision Making The patient was seen and evaluated history is obtained from the patient History and physical exam are consistent with asthma exacerbation Patient improved after DuoNeb. First dose of steroids is given the emergency department. Patient observed for >90min, repeat duoneb, patient had resolution of her wheezing. At this time patient is comfortable with plan for discharge home. All questions pertaining care were answered return parameters discussed patient was discharged home with prescription for steroids. Disposition Clinical Impression: Acute upper respiratory infection Disposition: HOME SELF-CARE Condition: Stable Instructions (If sedation given, give patient instructions): Upper Respiratory Infection (ED) Prescriptions: predniSONE [Deltasone] 40 mg PO DAILY 5 Days #10 tablet Is patient prescribed a controlled substance at d/c from ED?: No Referrals: Alexey Brown MD [Primary Care Provider] - 1-2 days
[2019-07-04] MEDS ORDERED: predniSONE 20 MG TAB PO STA (03:51)
--- NOTE | 2019-07-04 04:07 | XR ---
EXAMINATION TYPE: XR chest 2V DATE OF EXAM: 07/04/2019 COMPARISON: NONE HISTORY: Cough. Short of breath TECHNIQUE: Frontal and lateral views of the chest are obtained. FINDINGS: Heart and mediastinum are normal. Lungs are clear. Diaphragm is normal. Bony thorax appear s normal. IMPRESSION: Normal chest. No change.
[2019-07-04 04:08] VITALS: RESP 18
[2019-07-04 06:17] VITALS: BP 142/70; PULSE 99; TEMP 98
== END 2019-07-04 06:16 | disposition home or self-care (01) ==
LOC: EC 02:50
DX: J06.9 Acute upper respiratory infection, unspecified (principal); J45.901 Unspecified asthma with (acute) exacerbation; K21.9 Gastro-esophageal reflux disease without esophagitis; F32.9 Major depressive disorder, single episode, unspecified; E07.9 Disorder of thyroid, unspecified; Z79.51 Long term (current) use of inhaled steroids; Z79.890 Hormone replacement therapy; Z79.899 Other long term (current) drug therapy; Z88.0 Allergy status to penicillin; Z88.2 Allergy status to sulfonamides
CPT/HCPCS: 99285; 94640 ×2; 71046; J7512

== ENCOUNTER → 2019-07-16 | Outpatient (CLI) | payer BC ==
[2019-07-16 12:50] LABS: Prothrombin Time 10.4 sec (9.0-12.0)
[2019-07-16 18:47] LABS: Albumin 4.1 g/dL (3.80-4.90); Albumin/Globulin Ratio 2.41 (1.60-3.17); Bilirubin, Conjugated 0.2 mg/dL (0.20-0.40); Bilirubin,Unconjugated 0.5 mg/dL; Globulin 1.7 g/dL (1.6-3.3); Total Bilirubin 0.7 mg/dL (0.3-1.2); Total Protein 5.8 g/dL (6.2-8.2)
[2019-07-16 19:21] LABS: Codfish IgE <0.10 kU/L; Egg White IgE <0.10 kU/L
[2019-07-16 19:22] LABS: Peanut IgE <0.10 kU/L; Soybean IgE <0.10 kU/L
[2019-07-16 19:23] LABS: Clam IgE <0.10 kU/L; Scallop IgE <0.10 kU/L; Shrimp IgE <0.10 kU/L; Walnut IgE (Food) <0.10 kU/L
[2019-07-16 19:29] LABS: Dermato. farinae IgE <0.10 kU/L; Dog Dander IgE 0.44 kU/L
[2019-07-16 19:31] LABS: Cockroach IgE <0.10 kU/L
[2019-07-16 19:32] LABS: Aspergillus fumagatus IgE <0.10 kU/L; Cladosporian herbarum IgE <0.10 kU/L
[2019-07-16 19:33] LABS: Birch IgE 8.19 kU/L; Maple (Box Elder) IgE 0.87 kU/L
[2019-07-16 19:34] LABS: Elm IgE <0.10 kU/L; Red Top (Bentgrass) IgE <0.10 kU/L
[2019-07-16 20:58] LABS: Ragweed,Common IgE <0.10 kU/L
== END | disposition home or self-care (01) ==
LOC: LABWHC1 11:35
PROVIDERS: ATTEND Internal Medicine Critical Care Medicine
DX: J45.909 Unspecified asthma, uncomplicated (principal); K71.0 Toxic liver disease with cholestasis
CPT/HCPCS: 36415; 80076; 82785; 85008; 85610; 86003

== ENCOUNTER → 2021-06-19 | Day surgery (SDC) | payer BC ==
[2021-06-18 09:37] VITALS: BMI 41.1
[~2021-06-19] MED LIST: LIDOCAINE 1% INJ 10MG/ML (20 ML MDV) ONE; PROPOFOL 10 MG/ML 20 ML VIAL IV ONE
[2021-06-19 07:33] VITALS: TEMP 96.8
[2021-06-19] MEDS: LACTATED RINGERS 1,000 ML IV SCH ×2 (07:45→07:51)
[2021-06-19 07:46] LABS: Glucose,Whole Blood 94 mg/dL (75-99)
--- NOTE | 2021-06-19 08:14 | P.PCN ---
Date of Procedure: 06/19/21 Procedure(s) Performed: Brief history: Patient is a pleasant 55-year-old white female scheduled for an elective upper endoscopy as well as colonoscopy as a part of evaluation of GERD and screening for colorectal neoplasia Procedure performed: Esophagogastroduodenoscopy Colonoscopy Preoperative diagnosis: GERD Screening for colon cancer Anesthesia: [facility] Procedure: After informed consent was obtained from the patient was brought into the endoscopy unit and IV sedation was administered by anesthesia under continuous monitoring. Initially upper endoscopy was done. The Olympus GF 160 video endoscope was inserted inserted into the mouth and esophagus intubated without any difficulty and was gradually advanced into the stomach and duodenum and carefully examined. The bulb and second part of the duodenum appeared normal. The scope was then withdrawn into the stomach adequately insufflated with air and upon careful examination the antrum and body, cardia and fundus appeared normal. The scope was then withdrawn into the esophagus. Small sliding type hiatal hernia noted. The GE junction was located at 34 cm to the incisors. It appeared regular with no erythema erosions or ulcerations. Rest of the esophagus appeared normal. Patient tolerated the procedure well. At this time the patient continued to remain sedation. Initial digital rectal examination was normal. Olympus CF 160 video colonoscope was then inserted into the rectum and gradually advanced to the cecum without any difficulty. Careful examination was performed as the scope was gradually being withdrawn. The prep was excellent. The cecum, ascending colon, transverse colon, descending colon, sigmoid colon and rectum appeared normal. Retroflexion was performed in the rectum and no lesions were noted. Patient tolerated the procedure well. Impression: 1. Upper endoscopy revealed a small sliding type hiatal hernia but no evidence of esophagitis or Moses's esophagus 2. Colonoscopy was within normal limits with no evidence of colorectal neoplasia. Recommendations: Findings of this examination were discussed with the patient as well as a family. She will continue with her current medications and follow antireflux measures. She was advised to have a repeat screening colonoscopy in 10 years.
[2021-06-19 08:33] VITALS: BP 160/80; PULSE 82; RESP 22
== END ==
LOC: ORWHC2ENDO 06:11
PROVIDERS: ATTEND Internal Medicine Gastroenterology
DX: Z12.11 Encounter for screening for malignant neoplasm of colon (principal); K21.9 Gastro-esophageal reflux disease without esophagitis; K44.9 Diaphragmatic hernia without obstruction or gangrene; Z88.0 Allergy status to penicillin; Z88.2 Allergy status to sulfonamides; J45.909 Unspecified asthma, uncomplicated; H81.09 Meniere's disease, unspecified ear; E07.9 Disorder of thyroid, unspecified; Z79.899 Other long term (current) drug therapy
CPT/HCPCS: 43235; J2001; J2704; G0121

== ENCOUNTER → 2021-07-06 | Outpatient (CLI) | payer BC ==
--- NOTE | 2021-07-07 09:37 | MM ---
Reason for exam: screening (asymptomatic). Last mammogram was performed 9 years and 6 months ago. History: Patient is postmenopausal and is nulliparous. Family history of breast cancer in maternal aunt. Took hormonal contraceptives for 5 years. Physical Findings: A clinical breast exam by your physician is recommended on an annual basis and results should be correlated with mammographic findings. MG 3D Screening Mammo W/Cad Bilateral CC and MLO view(s) were taken. Prior study comparison: January 05, 2012, [facility] DIGITAL LEFT BREAST MAMMOGRAM w/CAD. December 30, 2011, bilateral digital screening mammo w/CAD. There are scattered fibroglandular densities. There is no discrete abnormality. Exam is suboptimal as patient could not tolerate minimal compression. No significant changes when compared with prior studies. ASSESSMENT: Negative, BI-RAD 1 RECOMMENDATION: Routine screening mammogram of both breasts in 1 year.
== END | disposition home or self-care (01) ==
LOC: RADMAMWWP 09:33
PROVIDERS: ATTEND Family Medicine
DX: Z12.31 Encounter for screening mammogram for malignant neoplasm of breast (principal); Z80.3 Family history of malignant neoplasm of breast; Z78.0 Asymptomatic menopausal state
CPT/HCPCS: 77063; 77067

== ENCOUNTER 2021-08-19 11:21 | Day surgery (SDC) | payer BC ==
[2021-08-17 12:19] VITALS: BMI 42.0
[~2021-08-19 11:21] MED LIST changes: +DEXAMETHASONE SOD PHOSPHATE 4 MG/ML 1 ML VIAL IV ONE; +HYDROmorphone 0.5 MG/0.5 ML SYRINGE IVP PRN; +LACTATED RINGERS 1,000 ML IV SCH; +LIDOCAINE 1% (10MG/ML) FOR IV START INTRADERMA PRN; -LIDOCAINE 1% INJ 10MG/ML (20 ML MDV) ONE; +MIDAZOLAM 2 MG/2 ML VIAL IV PRN; +ONDANSETRON 4 MG/2 ML VIAL IVP ONE; -PROPOFOL 10 MG/ML 20 ML VIAL IV ONE; +Pre Op ABX Message 1 EACH MISC MISCELLANE ONE
[2021-08-19 11:59] VITALS: TEMP 98.2
[2021-08-19] MEDS ORDERED: KETAMINE 10 MG/ML 20 ML VIAL ONE (14:05)
[2021-08-19] MEDS ORDERED: PROPOFOL 10 MG/ML 20 ML VIAL IV ONE (14:05)
[2021-08-19] MEDS ORDERED: fentaNYL (PF) 50 MCG/ML 2 ML AMP ONE (14:05)
[2021-08-19] MEDS ORDERED: MIDAZOLAM 2 MG/2 ML VIAL ONE (14:05)
[2021-08-19] MEDS ORDERED: BUPIVACAINE (PF) 0.25% 30 ML VIAL SQ ONE (14:14)
[2021-08-19] MEDS ORDERED: LIDOCAINE 1% INJ 10MG/ML (20 ML MDV) SQ ONE (14:14)
[2021-08-19] MEDS ORDERED: [UNRECOGNIZED DRUG - OTHER] TOPICAL ONE (14:36)
--- NOTE | 2021-08-19 15:03 | P.OP ---
Date of Procedure: 08/19/21 Preoperative Diagnosis: Onychomycosis hallux second and third digits of both feet Postoperative Diagnosis: Same Procedure(s) Performed: Total phenol and alcohol procedure hallux second and third digits of both feet Surgeon: David Ann Indications for Procedure: Onychomycosispain Operative Findings: Unremarkable Description of Procedure: On the date of surgery the patient was taken to the operating room in good condition placed on the operating table in supine position where an IV was started and adequate IV anesthetic agents were utilized anesthesia was then further supplemented with a 1 and 1 dilution of 0.25% plain Marcaine and 1% Xylocaine with epinephrine given in digital blocks to the hallux second and third digits of both feet a total of 9 mL was utilized The patient's feet and ankles were draped the usual aseptic manner after heavy web roll padding an ankle tourniquets were placed above the malleoli of each ankle. At this time attention was directed to the patient's left foot where the patient's left foot was elevated and exsanguinated of blood utilizing an Esmarch bandage and after approximately a minutes. A time the ankle tourniquet was inflated to approximately 250 mmHg. At this time utilizing nail splitter hallux nail was freed dorsally and plantarly and removed in total from the surgical site the same procedure was then performed for the second and third digits of the left foot utilizing carbolic acidphenol the matrix was cauterized and when adequate cauterization was obtained the carbolic acid was neutralized with 70% isopropyl alcohol bacitracin was applied to the nailbed areas in the leg dressing and the ankle tourniquet to the patient's left ankle was deflated adequate hemostatic return was seen in all digits of the patient's left foot specifically the hallux second and third digits at this point in time attention was directed to the patient's right foot where the exact same procedure was performed on the patient's right foot The patient tolerated the surgery and anesthesia well was taken to recovery room in good postoperative condition
[2021-08-19 15:14] VITALS: RESP 16
[2021-08-19 15:25] VITALS: BP 114/74; PULSE 77
== END 2021-08-19 15:51 | disposition home or self-care (01) ==
LOC: OR 11:21
PROVIDERS: ATTEND Podiatrist Foot & Ankle Surgery
DX: B35.1 Tinea unguium (principal)
CPT/HCPCS: 11750; J1100; J2405; J2001

== ENCOUNTER → 2023-03-21 | Outpatient (CLI) | payer BC ==
--- NOTE | 2023-03-21 11:00 | US ---
EXAMINATION TYPE: US transvaginal DATE OF EXAM: 03/21/2023 COMPARISON: CLINICAL INDICATION: Female, 57 years old with history of N83.9 NONINFLAMMATORY DISORD OF OVARY, FALL OP BR; Partial hysterectomy- Uterus only removed. TECHNIQUE: Transvaginal (TV). Date of LMP: Unknown EXAM MEASUREMENTS: Right Ovary: 14.0 x 11.1 x 8.9 cm 1. Uterus: Surgically absent 2. Endometrium: Surgically absent 3. Right Ovary: Large cystic lesion with moving internal echoes visualized = 11.2 x 10.5 x 12.1 cm 4. Left Ovary: Obscured by overlying bowel gas 5. Bilateral Adnexa: trace ff seen adjacent to right ovary 6. Posterior cul-de-sac: free fluid IMPRESSION: Complex right ovarian cystic lesion. Follow-up advised in 8-12 weeks.
== END | disposition home or self-care (01) ==
LOC: RADUSWWP 10:08
PROVIDERS: ATTEND Family Medicine
DX: N83.201 Unspecified ovarian cyst, right side (principal)
CPT/HCPCS: 76830

== ENCOUNTER → 2023-06-16 | Outpatient (CLI) | payer BC ==
--- NOTE | 2023-06-16 14:59 | US ---
EXAMINATION TYPE: US transvaginal DATE OF EXAM: 06/16/2023 COMPARISON: 03/21/2023 CLINICAL INDICATION: Female, 57 years old with history of N83.201; Follow up right ovarian cyst TECHNIQUE: Transvaginal only per patient's order 1. Uterus: surgically absent 2. Endometrium: surgically absent 3. Right Ovary: 10.3 x 15.9 x 11.9cm cystic lesion with internal echoes. On 03/21/2023 and measured 1 2.1 cm. 4. Left Ovary: not seen by due to bowel gas and small postmenopausal size 5. Bilateral Adnexa: wnl 6. Posterior cul-de-sac: wnl IMPRESSION: Large cystic lesion of the right adnexa/ovary measuring up to 13.9 cm versus 12.1 cm on 03/21/2023. Co nsider surgical evaluation. Status post hysterectomy. Left ovary could not be seen.
== END | disposition home or self-care (01) ==
LOC: RADUSWWP 08:52
PROVIDERS: ATTEND Family Medicine
DX: N83.201 Unspecified ovarian cyst, right side (principal); Z90.710 Acquired absence of both cervix and uterus
CPT/HCPCS: 76830

== ENCOUNTER → 2023-08-03 | Outpatient (CLI) | payer BC ==
--- NOTE | 2023-08-04 09:25 | MM ---
Reason for Exam: Screening (asymptomatic). Last mammogram was performed 2 year(s) and 1 month(s) ago. Patient History: Menarche at age 10. Patient has no children. Hysterectomy at age 45. Postmenopausal. Patient used Hormonal Contraceptives for 5 years. Maternal aunt had breast cancer. Risk Values: Janice 5 year model risk: 1.5%. NCI Lifetime model risk: 8.3%. Prior Study Comparison: 12/30/2011 Bilateral Screening Mammogram, [facility]. 01/05/2012 Left Diagnostic Mammogram, [facility]. 07/06/2021 Bilateral Screening Mammogram, [facility]. Tissue Density: There are scattered fibroglandular densities. Findings: Analyzed By CAD. There is no suspicious group of microcalcifications or new suspicious mass. Overall Assessment: Negative, BI-RAD 1 Management: Screening Mammogram of both breasts in [address] [facility] will attempt to contact patient to return for supplemental views and ultrasound if indicated. Patient should continue monthly self-breast exams. A clinical breast exam by your physician is recommended on an annual basis. This exam should not preclude additional follow-up of suspicious palpable abnormalities. Note on Janice scores and lifetime risk: 1. A Janice score greater than 3% is considered moderate risk. If this is the case, consider specialist referral to assess eligibility for a risk reducing agent. 2. If overall lifetime risk for the development of breast cancer is 20% or higher, the patient may qualify for future screening with alternating mammogram and breast MRI. Electronically signed and approved by: Dez Garay DO
== END | disposition home or self-care (01) ==
LOC: RADMAMWWP 10:55
PROVIDERS: ATTEND Family Medicine
DX: Z12.31 Encounter for screening mammogram for malignant neoplasm of breast (principal); Z78.0 Asymptomatic menopausal state; Z80.3 Family history of malignant neoplasm of breast
CPT/HCPCS: 77063; 77067

== ENCOUNTER → 2023-09-28 | Outpatient (CLI) | payer BC ==
--- NOTE | 2023-09-29 12:04 | CA ---
Transthoracic Echo Report Name: Doris Strange Age: 57 Gender: F : 1965 Exam Date: 09/28/2023 13:15 Exam Location: [facility] Ht (in): 62 Wt (lb): 233 Ordering Physician: Geo Kenney DO Attending/Referring Phys: Pediatric Genetic Counselor Chelsea Mao RDCS Procedure CPT: Indications: C77.0, C01 Cardiac Hx: Technical Quality: Fair Contrast 1: Total Dose (mL): Contrast 2: Total Dose (mL): MEASUREMENTS (Male / Female) Normal Values 2D ECHO LV Diastolic Diameter PLAX 4.0 cm 4.2 - 5.9 / 3.9 - 5.3 cm LV Systolic Diameter PLAX 2.1 cm IVS Diastolic Thickness 0.9 cm 0.6 - 1.0 / 0.6 - 0.9 cm LVPW Diastolic Thickness 0.9 cm 0.6 - 1.0 / 0.6 - 0.9 cm LV Relative Wall Thickness 0.5 RV Internal Dim ED PLAX 2.5 cm M-MODE Aortic Root Diameter MM 2.6 cm LA Systolic Diameter MM 1.8 cm LA Ao Ratio MM 0.7 AV Cusp Separation MM 4.3 cm DOPPLER AV Peak Velocity 169.4 cm/s AV Peak Gradient 11.5 mmHg AV Mean Velocity 103.7 cm/s AV Mean Gradient 5.1 mmHg AV Velocity Time Integral 32.5 cm LVOT Peak Velocity 123.8 cm/s LVOT Peak Gradient 6.1 mmHg LVOT Velocity Time Integral 28.6 cm Mitral E Point Velocity 92.8 cm/s Mitral A Point Velocity 111.1 cm/s Mitral E to A Ratio 0.8 MV Deceleration Time 234.3 ms MV E' Velocity 7.4 cm/s Mitral E to MV E' Ratio 12.6 FINDINGS Left Ventricle Normal Left ventricular size, wall thickness, systolic function with no obvious regional wall motion abnormalities. Normal Left ventricular diastolic filling pattern. Left ventricular ejection fraction is estimated at 55-60 %. Right Ventricle Normal right ventricular size and function. Right ventricular systolic pressure within normal limits. Right Atrium Normal right atrial size. Left Atrium Normal left atrial size. Mitral Valve Structurally normal mitral valve. Trace mitral regurgitation. Aortic Valve Trileaflet aortic valve. No aortic valve stenosis or regurgitation. Tricuspid Valve Structurally normal tricuspid valve. Trace to mild tricuspid regurgitation. Pulmonic Valve Structurally normal pulmonic valve. Pericardium No pericardial effusion. Aorta Normal size aortic root and proximal ascending aorta. CONCLUSIONS Normal left ventricle size and systolic function Trace mitral and trace to mild tricuspid regurgitation Previewed by: Dr. Kristina Riley MD (Electronically Signed) Final Date: 29 September 2023 12:03
== END | disposition home or self-care (01) ==
LOC: RADECHMAIN 12:53
PROVIDERS: ATTEND Family Medicine
DX: C77.0 Secondary and unspecified malignant neoplasm of lymph nodes of head, face and neck (principal); C01 Malignant neoplasm of base of tongue; I34.0 Nonrheumatic mitral (valve) insufficiency; I36.1 Nonrheumatic tricuspid (valve) insufficiency; Z82.49 Family history of ischemic heart disease and other diseases of the circulatory system
CPT/HCPCS: 93306

== ENCOUNTER → 2025-01-09 | Outpatient (CLI) | payer BC ==
--- NOTE | 2025-01-09 15:54 | MM ---
Reason for Exam: Screening (asymptomatic). Last mammogram was performed 1 year(s) and 6 month(s) ago. Patient History: Menarche at age 10. Patient has no children. Hysterectomy at age 45. Postmenopausal. Patient used Hormonal Contraceptives for 5 years. Maternal aunt had breast cancer. Risk Values: Janice 5 year model risk: 1.6%. NCI Lifetime model risk: 7.9%. Prior Study Comparison: 01/05/2012 Left Diagnostic Mammogram, [facility]. 07/06/2021 Bilateral Screening Mammogram, [facility]. 08/03/2023 Bilateral MG 3D screening mammo w/cad, [facility]. Tissue Density: There are scattered areas of fibroglandular density. Findings: Analyzed By CAD. There is no suspicious group of microcalcifications or new suspicious mass in either breast. Overall Assessment: Negative, BI-RAD 1 Management: Screening Mammogram of both breasts in 1 year. . Patient should continue monthly self-breast exams. A clinical breast exam by your physician is recommended on an annual basis. This exam should not preclude additional follow-up of suspicious palpable abnormalities. Note on Janice scores and lifetime risk: 1. A Janice score greater than 3% is considered moderate risk. If this is the case, consider specialist referral to assess eligibility for a risk reducing agent. 2. If overall lifetime risk for the development of breast cancer is 20% or higher, the patient may qualify for future screening with alternating mammogram and breast MRI. [facility], , 01/09/2025 3:51 PM. Electronically signed and approved by: Ildefonso Valencia M.D. Radiologis
== END | disposition home or self-care (01) ==
LOC: RADMAMWWP 15:12
PROVIDERS: ATTEND Obstetrics & Gynecology Gynecologic Oncology
DX: Z12.31 Encounter for screening mammogram for malignant neoplasm of breast (principal); R92.323 Mammographic fibroglandular density, bilateral breasts; Z78.0 Asymptomatic menopausal state; Z80.3 Family history of malignant neoplasm of breast; Z92.0 Personal history of contraception
CPT/HCPCS: 77063; 77067